=== PATIENT | male | born 1955 | race Caucasian/White ===

== ENCOUNTER → 2016-11-10 | Day surgery (SDC) | payer OTHER ==
[~2016-11-10] VITALS: Ht 185.4 cm; Wt 95.2 kg
[~2016-11-10] MED LIST: *ONDANSETRON 4 MG VIAL PERIprocedural Use ONLY ONE; *morphine SULFATE 8 MG/ML PERIprocedure ONLY ONE; ACETAMINOPHEN 1000 MG/100 ML VIAL IV ONE; ACETAMINOPHEN 1000 MG/100 ML VIAL IV SCH; AMLO5TAB2 PO; ASPI1TAB69 PO; BUPIVACAINE HCL PF 0.25% 10 ML VIAL ONE; BUPIVACAINE LIPOSOME PF 1.3% 20 ML VIAL NB ONE; CIAL5TAB PO; DEXAMETHASONE SOD PHOS 4 MG/ML VIAL ONE; DEXAMETHASONE SOD PHOS PF 10 MG/ML VIAL IV ONE; DO NOT ADM ANY ANTICOAGULANT DRUGS XX PRN; FAMOTIDINE 20 MG/2 ML VIAL ONE; INSULIN HUMAN REGULAR 1,000 UNITS/10 ML VIAL SQ PRN; KETOROLAC TROMETHAMINE 30 MG/ML (IVP) VIAL IV PUSH ONE; KETOROLAC TROMETHAMINE 30 MG/ML (IVP) VIAL ONE; LACTATED RINGER'S 1000 ML INJ 1,000 ML IV ONE; LACTATED RINGER'S 1000 ML INJ 1,000 ML ONE; LACTATED RINGER'S 1000 ML IV SCH; METOPROLOL TARTRATE 25 MG TAB PO PRN; MIDAZOLAM HCL 2 MG/2 ML VIAL ONE; MORPHINE SULFATE 4 MG/ML INJ IV PRN; NEOSTIGMINE 3 MG/3 ML SYR IV ONE; ONDANSETRON HCL 4 MG/2 ML VIAL IV PRN; ONDANSETRON HCL 4 MG/2 ML VIAL IV PUSH ONE; PROPOFOL 200 MG/20 ML AMP IV ONE; REDCAP9 PO; SODIUM CHLORID 0.9% 500 ML IV SCH; SODIUM CHLORIDE 5 ML FLUSH BID IVF SCH; SODIUM CHLORIDE 5 ML FLUSH PRN IVF; VITA10007 PO; ceFAZolin 2 GM PREMIX 50 ML IV SCH; ceFAZolin 2 GM PREMIX 50 ML ONE; fentaNYL CITRATE 250 MCG/5 ML AMP ONE; oxyCODONE/ACETAMINOPHEN 5 MG/325 MG TAB PO PRN
[2016-11-10 07:47] VITALS: BP 165/96; PULSE 65; RESP 18; TEMP 98.7; O2SAT 98
--- NOTE | 2016-11-10 12:14 | PD.OP ---
cc: Jean Martel MD; Mohan Carlton PhD Operative Report Date of Surgery: Nov 10, 2016 Preoperative Diagnosis: Umbilical hernia Postoperative Diagnosis: Umbilical hernia Procedure: Laparoscopic repair of umbilical hernia with ventral light ST mesh Anesthesia: Gen. endotracheal Surgeon: Jean Martel Court Attendant(s): Helen Trimble CFA Operation and Findings: Operative findings: The patient was found to have a 2-1/2-3 cm umbilical hernia which had no evidence of incarceration. There is quite a bit of extraperitoneal fat associated in the midline and slightly to the side around the hernia and above it. No other abnormalities were noted. Operative procedure: The patient was brought to the operating room after having undergone placement of a TA P block in preop holding. After satisfactory general endotracheal anesthesia was obtained, the abdomen was prepped and draped in the usual sterile fashion. An Ioban drape was placed across the abdomen. 0.25% Marcaine with epinephrine was used to infiltrate the skin for local anesthesia. A small incision was made in the left subcostal region and by blunt dissection the perineal cavity was entered with care being taken not to injure the underlying viscera. A 12 mm GelPort was placed within the incision and the balloon engaged. The abdomen was insufflated 15 mmHg using carbon dioxide. Camera was reinserted and visceral injury inspected for, with none being identified. Under direct visualization 5 ports were placed in the right upper quadrant as well as the right and left lower quadrants. The umbilical hernia was visualized and it was decided to resect the fat tissue attached to the peritoneum. The Harmonic scalpel was used as there were quite a few blood vessels, particularly around the umbilicus and the falciform ligament which was partially taken down. After clearing the fat as much as possible a 15 x [address] mesh was selected and it was rolled, then placed within the peritoneal cavity without problem. It was then unfurled and a small incision was made just above the umbilicus. A Anderson suture passer was used to grasp the insufflation tubing which was then brought externally. The inflatable backbone of the mesh was thus engaged and the mesh was brought into close approximation with the anterior abdominal wall. The mesh was secured in 4 quadrants using pro-tacks. The mesh backbone was then removed and a single layer of pro-tacks was used to secure the mesh at the edges. 2 separate absorb attack devices were used to secure the remainder of the mesh to the anterior abdominal wall so that it lay flat and secure against the abdominal wall in all areas. The hernia was again visualized and seen to be well covered by the mesh as well as the diastases recti. Hemostasis was checked for and found to be quite satisfactory. The carbon dioxide was vented as completely as possible the atmosphere, after which the ports were removed and the 12 mm fascial defect closed with interrupted 0 Vicryl sutures. The skin was then closed with interrupted 4-0 PDS subcutaneous stitches. Steri-Strips were applied as well as an abdominal binder. The patient was then awakened and taken from the operating room, in satisfactory condition, having tolerated procedure well. Estimated blood loss was less than 10 mL's. The isthmic, sponge, and needle counts were reported as being correct 2 at the end of the procedure. Jean Martel MD Nov 10, 2016 12:14
[2016-11-10 14:03] VITALS: BP 124/76; PULSE 77; RESP 18; TEMP 97.6; O2SAT 96
== END | disposition home or self-care (01) ==
LOC: HSDC 07:01
PROVIDERS: ATTEND Surgery
DX: K42.9 Umbilical hernia without obstruction or gangrene (principal); I10 Essential (primary) hypertension
CPT/HCPCS: 00752; 49652; 64488; C1781; C9290; J1100; J1885; J2250; J2270; J2405; J2710; J3010; J7120; J0131; J0690